=== PATIENT | female | born 1950 | race Caucasian/White ===

== ENCOUNTER 2016-07-13 18:48 | Emergency (ER) | payer MEDICARE ==
--- NOTE | 2016-07-13 20:25 | RAD ---
Indication: Trauma, head injury CT of the brain was performed without IV contrast. Ventricular structures are midline. No midline shift is noted. The extra-axial spaces are unremarkable. There is no evidence of intracranial mass or hemorrhage. No other high or low density lesions are identified. Mastoid air cells and paranasal sinuses are otherwise unremarkable. IMPRESSION: No intracranial mass or hemorrhage is noted.
--- NOTE | 2016-07-13 20:35 | RAD ---
Indication: Neck injury. CT of the cervical spine was obtained in the axial plane. Sagittal and coronal reconstructed images were obtained. The skull base demonstrates no evidence of fracture. Mastoid air cells are well aerated. Degenerative changes of the atlantoaxial joint is noted. C1 ring is intact. At C2-C3 there is degenerative disc disease present. Left uncovertebral joint hypertrophy and left facet arthropathy is noted with mild left foraminal stenosis. At C3-C4 spondylitic ridge with left uncovertebral hypertrophy and left facet arthropathy is noted. Mild left foraminal stenosis is present. C4-C5 spondylitic ridge with bilateral uncovertebral joint hypertrophy narrows both foramen. No no fractures are identified. At C5-C6 spondylitic ridge with broad-based protrusion flattens the thecal sac. Bilateral uncovertebral hypertrophy narrows both foramen. At C6-C7 spondylitic ridge flattens the thecal sac. Dorsal and ventral osteophyte formation is noted. No foraminal stenosis is noted. At C7-T1 and T1-T2 degenerative disc disease is noted. IMPRESSION: No fracture of the cervical spine is noted. Degenerative changes of the atlantoaxial joint is noted. Degenerative disc disease at C4-C5, C5-C6 and C6-C7.
--- NOTE | 2016-07-13 20:47 | RAD ---
Indication: Facial injury. CT of the facial bones was obtained in the axial plane. Sagittal and coronal reconstructed images were obtained. The mandible appears to be intact with no evidence of fracture. The maxilla including the nasal spine as well as the nasal bones demonstrate no fracture. The orbits are intact. Zygomatic arch are intact. Skull base appears to be intact. Paranasal sinuses are otherwise unremarkable. Paranasal sinuses are unremarkable. The orbits are unremarkable. No evidence of abnormal adenopathy is noted. IMPRESSION: No fracture of the facial bones is identified.
--- NOTE | 2016-07-13 21:09 | ED ---
Jose Antonio Morales Billy, scribed for Ricardo Hernandez MD on 07/13/16 at 1933 . Head Injury - HPI Summary HPI Summary: Patient is a 66 year-old female coming to [facility] after she had a simple mechanical fall onto the sidewalk earlier tonight at 1800. She states she tripped and impacted the left forehead against the concrete. Pain severity 4/ 10. She denies any LOC although reports that the fall was unwitnessed. Positive dizziness, nausea, and headache at this time. She also reports neck pain that is worse with movement, and in fact states that she "twisted" her neck upon impact. She is able to bear weight and has FROM of her extremities. - History Of Current Complaint Chief Complaint: EDHeadInjury Stated Complaint: FALL/HEAD,NECK AND KNEE INJURY,DIZZINESS Time Seen by Provider: 07/13/16 19:20 Hx Obtained From: Patient Mechanism Of Injury: Fall From A Standing Position Onset/Duration: Started Minutes Ago, Still Present Onset of Pain: Immediate Severity Currently: Moderate Severity Initially: Moderate Pain Intensity: 4 Pain Scale Used: 0-10 Numeric Location of Head Injury: Frontal Aggravating Factor(s): Movement Associated Signs And Symptoms: Nausea, Headache, Other: - dizziness - Allergies/Home Medications Allergies/Adverse Reactions: Allergies Allergy/AdvReac Type Severity Reaction Status Date / Time BAL Inhibitors Allergy Palpitation Verified 08/26/15 10:19 s Midazolam [From Versed] Allergy See Comment Verified 08/26/15 10:19 ANESTHESIA Allergy Swelling Uncoded 08/26/15 10:15 PMH/Surg Hx/FS Hx/Imm Hx Endocrine/Hematology History: Denies: Hx Diabetes Cardiovascular History: Reports: Hx Hypertension - ON MEDICATION Denies: Hx Pacemaker/ICD History: Denies: Hx Renal Disease Sensory History: Reports: Hx Hearing Aid Psychiatric History: Denies: Hx Panic Disorder - Surgical History Surgery Procedure, Year, and Place: HYSTERECTOMY 2002-PARATHYROIDECTOMY 2009- STERILIZATION 1997 Infectious Disease History: No Infectious Disease History: Denies: Traveled Outside the [place] in Last 30 Days - Family History Known Family History: Negative: Cardiac Disease, Hypertension, Diabetes - Social History Alcohol Use: Weekly Substance Use Type: Reports: None Smoking Status (MU): Never Smoked Tobacco Review of Systems Positive: Nausea Positive: Other - neck pain Neurological: Other - dizziness Positive: Headache All Other Systems Reviewed And Are Negative: Yes Physical Exam Triage Information Reviewed: Yes Vital Signs On Initial Exam: Initial Vitals Temp Pulse Resp BP Pulse Ox 98.1 F 79 18 161/86 98 07/13/16 18:50 07/13/16 18:50 07/13/16 18:50 07/13/16 18:50 07/13/16 18:50 Vital Signs Reviewed: Yes Appearance: Positive: Well-Appearing, No Pain Distress Skin: Positive: Warm, Skin Color Reflects Adequate Perfusion, Dry, Other - Ecchymosis to the left forehead. Eyes: Positive: EOMI, LUCERO ENT: Positive: Normal ENT inspection, TMs normal Neck: Positive: Tenderness @ - Mild tenderness to the midline. Respiratory/Lung Sounds: Positive: Clear to Auscultation, Breath Sounds Present Cardiovascular: Positive: RRR Abdomen Description: Positive: Nontender, Soft Musculoskeletal: Positive: Normal, Strength/ROM Intact Neurological: Positive: Normal, Sensory/Motor Intact, Alert, Oriented to Person Place, Time Psychiatric: Positive: Normal, Affect/Mood Appropriate - Radha Coma Scale Coma Scale Total: 15 Diagnostics - Vital Signs Vital Signs Temp Pulse Resp BP Pulse Ox 07/13/16 19:23 76 97 07/13/16 19:21 159/78 07/13/16 18:50 98.1 F 79 18 161/86 98 - Laboratory Lab Statement: Any lab studies that have been ordered have been reviewed, and results considered in the medical decision making process. - CT Maxillofacial CT Interpretation Completed By: Radiologist - No fracture of the facial bones is identified. C-spine CT Interpretation Completed By: Radiologist - No fracture of the cervical spine is noted. Degenerative changes of the atlantoaxial joint is noted. Degenerative disc disease at C4-C5, C5-C6 and C6-C7. Brain CT Interpretation Completed By: Radiologist - No intracranial mass or hemorrhage is noted. Re-Evaluation - Re-Evaluation First Eval Re-Evaluation Time: 21:04 Change: Improved Comment: Labs and imaging discussed. Head Injury Course/Dx Assessment/Plan: WELL IN ED. DISCUSSED RESULTS WITH PATIENT/DAUGHTER. DISCHARGE HOME STABLE. - Diagnoses Provider Diagnoses: Head injury, Cervical strain Discharge - Discharge Plan Condition: Stable Disposition: HOME Patient Education Materials: Head Injury (ED), Cervical Strain (ED) Referrals: Chika Lemus MD [Primary Care Provider] - Additional Instructions: FOLLOW UP WITH YOUR DOCTOR. RETURN TO THE EMERGENCY DEPARTMENT FOR ANY WORSENING OF YOUR CONDITION; PAIN, WEAKNESS, NUMBNESS, UNEXPLAINED VOMITING, VISION CHANGE OR QUESTIONS OR CONCERNS. The documentation as recorded by the Jose Antonio zeng Billy accurately reflects the service I personally performed and the decisions made by me, Ricardo Hernandez MD.
[2016-07-13 22:01] VITALS: BP 141/79
== END 2016-07-13 22:01 | disposition home or self-care (01) ==
LOC: ED 18:48
DX: S09.90XA Unspecified injury of head, initial encounter (principal); S16.1XXA Strain of muscle, fascia and tendon at neck level, initial encounter; R11.0 Nausea; R51 Headache; R42 Dizziness and giddiness; M54.2 Cervicalgia; W10.1XXA Fall (on)(from) sidewalk curb, initial encounter; Y93.9 Activity, unspecified; Y92.9 Unspecified place or not applicable; Y99.9 Unspecified external cause status
CPT/HCPCS: 70450; 70486; 72125; 99282

== ENCOUNTER 2018-03-28 19:13 | Emergency (ER) | payer MEDICARE ==
[2018-03-28 19:58] VITALS: BP 142/61
--- NOTE | 2018-03-28 20:30 | UC ---
Cardiac HPI - HPI Summary HPI Summary: 68-year-old woman comes in with a chief complaint of right lower anterior chest pain. Patient's been sick for quite a while and the coughing a lot. The pain is worse with coughing it's also worse with palpation she can find a spot of the rib Makes the pain worse when she presses it. No recent fevers or chills not bringing up any more sputum. No left-sided chest pain. - History of Current Complaint Chief Complaint: UCRespiratory Stated Complaint: COUGH,RIB PAIN Time Seen by Provider: 03/28/18 19:49 Pain Intensity: 3 - Allergy/Home Medications Allergies/Adverse Reactions: Allergies Allergy/AdvReac Type Severity Reaction Status Date / Time BAL Inhibitors AdvReac Palpitation Verified 03/28/18 19:52 s midazolam AdvReac memory loss Verified 03/28/18 19:52 ANESTHESIA Allergy Swelling Uncoded 03/28/18 19:52 PMH/Surg Hx/FS Hx/Imm Hx Cardiovascular History: Hypertension - Surgical History Surgical History: Yes Surgery Procedure, Year, and Place: HYSTERECTOMY 2002-PARATHYROIDECTOMY 2009- STERILIZATION 1997 - Family History Known Family History: Negative: Cardiac Disease, Hypertension, Diabetes - Social History Alcohol Use: Weekly Substance Use Type: None Smoking Status (MU): Never Smoked Tobacco Review of Systems All Other Systems Reviewed And Are Negative: Yes Constitutional: Positive: Negative Skin: Positive: Negative Eyes: Positive: Negative ENT: Positive: Negative Respiratory: Positive: Cough Cardiovascular: Positive: Chest Pain Gastrointestinal: Positive: Negative Motor: Positive: Negative Neurovascular: Positive: Negative Musculoskeletal: Positive: Negative Neurological: Positive: Negative Psychological: Positive: Negative Is Patient Immunocompromised?: No Physical Exam Triage Information Reviewed: Yes Appearance: Well-Appearing, No Pain Distress, Well-Nourished Vital Signs: Initial Vital Signs Temp 99.7 F 03/28/18 19:50 Pulse 80 03/28/18 19:50 Resp 18 03/28/18 19:50 BP 142/61 03/28/18 19:50 Pulse Ox 96 03/28/18 19:50 Vital Signs Reviewed: Yes Eye Exam: Normal Eyes: Positive: Conjunctiva Clear Neck exam: Normal Neck: Positive: Supple Respiratory: Positive: Lungs clear, Normal breath sounds, No respiratory distress, Other: - Tender to palpation right lower anterior ribs Cardiovascular: Positive: RRR Abdomen Description: Positive: Nontender, Soft Musculoskeletal Exam: Normal Musculoskeletal: Positive: Strength Intact, ROM Intact Neurological Exam: Normal Neurological: Positive: Alert, Muscle Tone Normal Psychological Exam: Normal Psychological: Positive: Age Appropriate Behavior Skin Exam: Normal - Assessment/Plan Course Of Treatment: I discussed the x-rays with the patient. I do not see any infiltrates or pneumothorax or broken rib. Radiologist reading is pending. I discussed pain management with the patient and also taking some Over-the- counter medication to help decrease the cough. He has follow-up primary care doctor get a reevaluation sooner if worse or any questions or concerns. - Clinical Impression Provider Diagnoses: RIGHT RIB PAIN. RIGHT CHEST PAIN Discharge - Sign-Out/Discharge Documenting (check all that apply): Patient Departure All imaging exams completed and their final reports reviewed: No - Discharge Plan Condition: Stable Disposition: HOME Patient Education Materials: Rib Fracture (ED) Referrals: Beatris Kerr DO [Primary Care Provider] - Additional Instructions: FOLLOW UP WITH YOUR DOCTOR IF NOT COMPLETELY IMPROVED. GET RECHECKED FOR ANY WORSENING OF YOUR CONDITION OR QUESTIONS OR CONCERNS. - Billing Disposition and Condition Condition: STABLE Disposition: Home
--- NOTE | 2018-03-29 08:21 | UC ---
- Progress Note Progress Note: Patient Name: CHAUNCEY ESTRADA Medical Record#: [id number] Ordering Physician: Ricardo Hernandez MD Acct.#: [id number] : 1950 Age: 68 Sex: F Location: [facility] Exam Date: 03/28/182007 ADM Status: DEP ER Order Information: RIBS RIGHT UNILATERAL 2 VWS Accession Number: [id number] CPT: 41003 INDICATION: Right rib injury. 3 views of the right ribs demonstrates no fracture. No definite pneumothorax is noted. IMPRESSION: No definite fracture of the right ribs is noted. R0 Preliminary Imaging Read NO DISCREPANCY <Electronically signed by Kayy Merino MD in OV> 03/29/18 08 Dictated By: Kayy Merino MD Dictated Date/Time: 03/29/18 08 Transcribed Date/Time: 03/29/18 0758 Copy to: CC:Beatris Kerr DO; Ricardo Hernandez MD Imaging - [facility] Imaging - [facility] Urgent [place] [address] [address] ph ([phone]) ph ([phone]) ph ([phone]) This report is only to be considered final once signed by the Provider(s) as displayed in the "<Electronically Signed by >" field (s). Absence of a signature indicates the report is in a draft status and still needs to be finalized. In the event this document was created by someone other than the signing Provider, the individual initiating the document will be listed in the "Entered by:" or "Dictated by:" vernon. 1 of 1 Discharge - Sign-Out/Discharge Documenting (check all that apply): Post-Discharge Follow Up All imaging exams completed and their final reports reviewed: Yes - Discharge Plan Condition: Stable Disposition: HOME Patient Education Materials: Rib Fracture (ED) Referrals: Beatris Kerr DO [Primary Care Provider] - Additional Instructions: FOLLOW UP WITH YOUR DOCTOR IF NOT COMPLETELY IMPROVED. GET RECHECKED FOR ANY WORSENING OF YOUR CONDITION OR QUESTIONS OR CONCERNS. - Billing Disposition and Condition Condition: STABLE Disposition: Home
== END 2018-03-28 20:45 | disposition home or self-care (01) ==
LOC: UCEAST 19:13
DX: R07.89 Other chest pain (principal); R07.81 Pleurodynia; I10 Essential (primary) hypertension; Z88.8 Allergy status to other drugs, medicaments and biological substances; Z88.4 Allergy status to anesthetic agent
CPT/HCPCS: 71046; 99211; G0463